=== PATIENT | male | born 1960 | race Caucasian/White ===

== ENCOUNTER → 2017-02-04 | Outpatient (CLI) | payer OTHER | LOC: RAD 08:34 | DX: M54.5 Low back pain (principal); M54.2 Cervicalgia; M25.512 Pain in left shoulder; M50.30 Other cervical disc degeneration, unspecified cervical region; M47.816 Spondylosis without myelopathy or radiculopathy, lumbar region | CPT/HCPCS: 72050; 72110; 73030 ==